=== PATIENT | female | born 1950 | race Caucasian/White ===

== ENCOUNTER → 2016-09-29 | Outpatient (CLI) | payer MEDICARE ==
[~2016-09-29] MED LIST: ASPIRIN 32325 MG/TAB PO; ASPIRIN E.C. 8181 MG PO; CEPHALEXIN500 M1 PO; FLEXERIL 1010 MG/TAB PO; FOLIC ACID 40400 MCG PO; GLIPIZIDE XL10 MG PO; GLUCOPHAGE500 MG/TAB PO; GLUCOTROL10 MG PO; HCTZ; HCTZ 25MG TAB25 MG PO; JANUVIA 100MG100 MG PO; LANTUS SOLOS100 U/ML SC; LEXAPRO20 MG PO; LIPITOR 10MG10 MG PO; LIPITOR20 MG PO; LORTAB 5/500 501 TAB PO; METFORMIN850 MG PO; NIACIN500 MG PO; NORCO 325 MG-51 TAB PO; ONGLYZA5 MG PO; QUINAPRIL HCL40 MG PO; ROXICODONE 55 MG/TAB PO; SENORMIN50 MG PO; SLO MAG; TENORMIN100 MG PO; VITAMIN E1000 U/CAP PO
== END ==
LOC: MC.RAD 14:09
DX: R92.8 Other abnormal and inconclusive findings on diagnostic imaging of breast (principal)

== ENCOUNTER → 2016-10-09 | Outpatient (CLI) | payer MEDICARE | LOC: MC.RAD 13:55 | DX: R92.8 Other abnormal and inconclusive findings on diagnostic imaging of breast (principal) ==

== ENCOUNTER → 2017-12-15 | Outpatient (CLI) | payer MEDICARE | LOC: COL.RAD 11:17 | DX: M50.01 Cervical disc disorder with myelopathy, high cervical region (principal); M48.02 Spinal stenosis, cervical region; M99.71 Connective tissue and disc stenosis of intervertebral foramina of cervical region; M43.16 Spondylolisthesis, lumbar region ==

== ENCOUNTER 2021-07-08 18:45 | Emergency (ER) | payer MEDICARE ==
[~2021-07-08] VITALS: Ht 157.5 cm; Wt 68.2 kg
[2021-07-08 19:18] VITALS: TEMP 97.8
[2021-07-08] MEDS ORDERED: NORCO 325 MG-51 TAB PO (21:29)
[2021-07-08 21:38] VITALS: BP 138/79; PULSE 73
== END 2021-07-08 21:54 | disposition home or self-care (01) ==
LOC: COL.ER 18:45
DX: S82.831A Other fracture of upper and lower end of right fibula, initial encounter for closed fracture (principal); W18.42XA Slipping, tripping and stumbling without falling due to stepping into hole or opening, initial encounter

== ENCOUNTER 2022-03-28 11:05 | Day surgery (SDC) | payer MEDICARE ==
[~2022-03-28] VITALS: Ht 157.5 cm; Wt 59.7 kg
[2022-03-28 12:18] VITALS: BP 129/78; PULSE 77; TEMP 97.8
[2022-03-28] MEDS ORDERED: AMITRIPTYLINE H25 M1 PO (12:36)
[2022-03-28] MEDS ORDERED: TENORMIN100 MG PO (12:37)
[2022-03-28] MEDS ORDERED: LEXAPRO20 MG PO (12:37)
[2022-03-28] MEDS ORDERED: NEURONTIN100 MG/CAP PO (12:39)
[2022-03-28] MEDS ORDERED: VITAMIN B12 1541 TAB PO (12:39)
[2022-03-28] MEDS ORDERED: ACCUPRIL40MGTAB PO (12:40)
[2022-03-28] MEDS ORDERED: OS-CAL 500 + D1 TAB (12:43)
[2022-03-28 14:00] VITALS: BP 122/68; PULSE 64; TEMP 97.9
--- NOTE | 2022-03-28 14:00 | NUR ---
Pt returned via cart to [facility]. Ambulated with SBA to recliner in bay. VSS-documented. Pt A&O. Given "strong coffee with lots of cream and sugar", per pt request. Call light in reach. Pts sister, Dorie present in room upon return.
[2022-03-28 14:15] VITALS: BP 111/89; PULSE 66
[2022-03-28 14:30] VITALS: BP 106/66; PULSE 77
--- NOTE | 2022-03-28 15:00 | NUR ---
Dr Turner in to visit with pt post procedure. VS remain stable. Tolerated oral intake. IV removed, pressure dressing applied. Discharge teaching completed, pt verbalized understanding. Taken via wheelchair to [facility] for dc home with sister driving.
== END 2022-03-28 15:00 | disposition home or self-care (01) ==
LOC: SDCO 11:05
DX: K52.831 Collagenous colitis (principal); K57.30 Diverticulosis of large intestine without perforation or abscess without bleeding; K29.31 Chronic superficial gastritis with bleeding; Z79.899 Other long term (current) drug therapy; Z79.84 Long term (current) use of oral hypoglycemic drugs; F17.210 Nicotine dependence, cigarettes, uncomplicated
CPT/HCPCS: J2704; J7030